=== PATIENT | female | born 1990 | race Caucasian/White ===

== ENCOUNTER 2019-12-25 13:07 | Emergency (ER) | payer OTHER ==
[2019-12-25 13:16] VITALS: RESP 18; TEMP 98.3
[2019-12-25] MEDS ORDERED: IBUPROFEN 600 MG TAB PO STA (13:35)
--- NOTE | 2019-12-25 14:07 | XR ---
EXAMINATION TYPE: XR chest 2V DATE OF EXAM: 12/25/2019 COMPARISON: 11/26/2011 HISTORY: Chest pain TECHNIQUE: FINDINGS: Heart and mediastinum are normal. Lungs are clear. Diaphragm is normal. Bony thorax appears normal. IMPRESSION: Normal chest. No change.
--- NOTE | 2019-12-25 14:10 | XR ---
EXAMINATION TYPE: XR shoulder complete RT DATE OF EXAM: 12/25/2019 COMPARISON: NONE HISTORY: Pain TECHNIQUE: 3 views FINDINGS: There is no sign of fracture nor dislocation. Joint spaces are normal. There are no patholo gic calcifications. IMPRESSION: Negative right shoulder exam. No fracture.
--- NOTE | 2019-12-25 14:11 | XR ---
EXAMINATION TYPE: XR wrist complete RT DATE OF EXAM: 12/25/2019 COMPARISON: NONE HISTORY: Wrist pain TECHNIQUE: 4 views FINDINGS: There is no sign of fracture nor dislocation. Carpal bones are intact. Scaphoid appears nor mal. IMPRESSION: Normal right wrist exam.
--- NOTE | 2019-12-25 14:13 | XR ---
EXAMINATION TYPE: XR hand complete RT DATE OF EXAM: 12/25/2019 COMPARISON: NONE HISTORY: Pain TECHNIQUE: 3 views FINDINGS: Metacarpals are intact. I see no fracture nor dislocation. Joint spaces are normal. IMPRESSION: Negative right hand exam.
--- NOTE | 2019-12-25 14:45 | XR ---
EXAMINATION TYPE: XR scapula RT DATE OF EXAM: 12/25/2019 COMPARISON: NONE HISTORY: Fall. Pain. TECHNIQUE: 3 views FINDINGS: There is a 2 cm nondisplaced chip fracture of the inferior margin of the scapula. The gleno humeral joint is intact. AC joint is intact. IMPRESSION: Nondisplaced scapular fracture of the inferior margin.
[2019-12-25] MEDS ORDERED: ACET/COD 300 MG/30 MG STARTER PACK 6 TAB BTL PO STA (15:17)
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
[2019-12-25 15:24] VITALS: BP 130/70; PULSE 70
== END 2019-12-25 15:28 | disposition home or self-care (01) ==
LOC: EC 13:07
DX: S42.191A Fracture of other part of scapula, right shoulder, initial encounter for closed fracture (principal); M25.531 Pain in right wrist; F17.200 Nicotine dependence, unspecified, uncomplicated; V89.2XXA Person injured in unspecified motor-vehicle accident, traffic, initial encounter; Y92.009 Unspecified place in unspecified non-institutional (private) residence as the place of occurrence of the external cause
CPT/HCPCS: 71046; 99284

== ENCOUNTER → 2020-02-07 | Outpatient (CLI) | payer SELFPAY ==
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
== END | disposition home or self-care (01) ==
LOC: RADCTMAIN 11:21
PROVIDERS: ATTEND Orthopaedic Surgery
DX: S62.143A Displaced fracture of body of hamate [unciform] bone, unspecified wrist, initial encounter for closed fracture (principal)

== ENCOUNTER 2021-04-23 11:40 | Outpatient (CLI) | payer SELFPAY ==
[2021-04-23 12:58] LABS: Appearance,Urine Turbid (Clear); Bacteria,Urine Moderate /hpf; Bilirubin,Urine Negative (Negative); Blood,Urine Negative (Negative); Calcium Oxalate Crystals,Urine Few /hpf; Color,Urine Yellow; Glucose,Urine (UA) Negative (Negative); Ketones,Urine Trace (Negative); Leukocyte Esterase,Urine Large (Negative); Mucus,Urine Many /hpf; Nitrite,Urine Negative (Negative); PH, Urine 6.5 (5.0-8.0); Protein,Urine 1+ (Negative); RBC,Urine 2 /hpf (0-5); Specific Gravity,Urine 1.029 (1.001-1.035); Squamous Epithelial Cell,Urine 95 /hpf (0-4)
[2021-04-23 13:50] VITALS: BP 119/67; PULSE 118; RESP 16; TEMP 97.5
--- NOTE | 2021-04-23 18:08 | P.MSEPDOC ---
Presenting Problems - Arrival Data Date of Arrival on Unit: 04/23/21 Time of Arrival on Unit: 11:40 Mode of Transport: Ambulatory - Complaint OB-Reason for Admission/Chief Complaint: NST, Other Comment: sore throat Medical History - Information : 3 Para: 1 Term: 1 : 0 Abortions: Spontaneous or Elective: 1 Number of Living Children: 1 - Gestational Age Gestational Age by OMARI (wks/days): 32 Weeks and 4 Days - History Complications: Smoker Review of Systems - Review of Systems Constitutional: No problems Breast: No problems ENT: Sore throat, Cough Cardiovascular: No problems Respiratory: No problems Gastrointestinal: No problems Genitourinary: No problems Musculoskeletal: No problems Neurological: No problems Skin: No problems Vital Signs - Temperature Temperature: 97.5 F Temperature Source: Temporal Artery Scan - Pulse Right Sitting Pulse Rate: 118 Pulse Assessment Method: Automatic Cuff - Respirations Respiratory Rate: 16 Oxygen Delivery Method: Room Air O2 Sat by Pulse Oximetry: 98 - Blood Pressure Right Arm Blood Pressure: 119/67 Blood Pressure Mean: 84 Blood Pressure Source: Automatic Cuff Medical Screen Scoring - Assessment - Baby A Baseline FHR: 150 Heart Rate - NICHD Category: Category I (Normal) NST: Reactive Physician Notification - Physician Notified Physician Notified Date: 04/23/21 Physician Notified Time: 13:16 Physician: Freida Barragan Order Received: Yes (d/c home) Maternal Triage Index - Scheduled/Requesting Priority 5 Scheduled/Requesting Priority 5: Yes Criteria Met for Priority 5: written order for NST, Urinalysis, covid, flu and strep swab Disposition - Disposition OB Disposition: Discharge to home Discharge Date: 04/23/21 Discharge Time: 13:25 I agree with the RN Medical Screening Exam: Yes Case reviewed; plan agreed upon as documented in EMR&OBIX.: Yes Diagnosis: COVID-19
== END 2021-04-23 13:25 | disposition home or self-care (01) ==
LOC: FBPOP 11:40
PROVIDERS: ATTEND Obstetrics & Gynecology
DX: O98.513 Other viral diseases complicating pregnancy, third trimester (principal); O99.333 Smoking (tobacco) complicating pregnancy, third trimester; U07.1 COVID-19; F17.200 Nicotine dependence, unspecified, uncomplicated; Z3A.32 32 weeks gestation of pregnancy
CPT/HCPCS: 59025; 81001; 87081; 87430; 87502; 87635

== ENCOUNTER 2021-06-07 06:00 | Inpatient (IN) | payer OTHER ==
--- NOTE | 2021-06-06 13:16 | P.HPOB ---
History of Present Illness H&P Date: 06/06/21 Chief Complaint: Induction of labor This is a 30 y.o. female, 3, para 1, with an estimated date of confinement of 06/14/2021, estimated gestational age of 39-0/7 weeks, who presents for induction of labor. She complains of frequent contractions and pressure. was complicated by COVID-19 in April. labs: CF screen-neg Syphilis screen-neg Rubella-immune Random glucose-69 Hepatitis B surface antigen-neg Hemoglobin-12.6 Blood type-A+ Antibody screen-neg 1 hr. GTT-79 GBS-neg Pap-HGSIL OB Hx: . 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 Review of Systems Constitutional: Denies chills, Denies fever Eyes: denies blurred vision, denies pain Ears, nose, mouth and throat: Denies headache, Denies sore throat Cardiovascular: Denies chest pain, Denies shortness of breath Respiratory: Denies cough Gastrointestinal: Reports abdominal pain (contractions), Denies diarrhea, Denies nausea, Denies vomiting Genitourinary: Reports pelvic pain, Reports Musculoskeletal: Reports low back pain Integumentary: Denies pruritus, Denies rash Neurological: Denies numbness, Denies weakness Psychiatric: Denies anxiety, Denies depression Past Medical History Past Medical History: No Reported History History of Any Multi-Drug Resistant Organisms: None Reported Past Surgical History: No Surgical Hx Reported Past Psychological History: No Psychological Hx Reported Smoking Status: Vaper Past Alcohol Use History: None Reported Past Drug Use History: None Reported - Past Family History Father Family Medical History: Hypertension Mother Family Medical History: Thyroid Disorder Medications and Allergies Home Medications Medication Instructions Recorded Confirmed Type Ondansetron [Zofran ODT] 4 mg PO Q8HR PRN #15 tab 12/25/19 04/23/21 Rx diphenhydrAMINE HCL [Benadryl] 1 tab PO DIRECTED 04/23/21 04/23/21 History Allergies Allergy/AdvReac Type Severity Reaction Status Date / Time No Known Allergies Allergy Verified 04/23/21 12:05 Exam Osteopathic Statement: *. No significant issues noted on an osteopathic structural exam other than those noted in the History and Physical/Consult.
[2021-06-07] MEDS ORDERED: CARBOPROST TROMETHAMINE 250 MCG/ML 1 ML AMP IM PRN (06:29)
[2021-06-07] MEDS ORDERED: OXYTOCIN 30 UNITS/500 ML NS 30 UNIT in SALINE 1 500ML.BAG IV SCH ×2 (06:29→13:28)
[2021-06-07] MEDS ORDERED: LIDOCAINE 1% (PF) 10 MG/ML (30 ML SDV) SQ PRN (06:29)
[2021-06-07] MEDS ORDERED: OXYTOCIN 10 UNIT/ML 1 ML VIAL IM PRN (06:29)
[2021-06-07] MEDS ORDERED: METHYLERGONOVINE 0.2 MG/ML 1 ML AMP IM PRN (06:29)
[2021-06-07] MEDS ORDERED: LACTATED RINGERS 1,000 ML IV SCH (06:29)
[2021-06-07] MEDS ORDERED: TERBUTALINE 1 MG/ML VIAL SQ PRN (06:29)
[2021-06-07] MEDS ORDERED: LIDOCAINE 1% (10MG/ML) FOR IV START INTRADERMA PRN (06:29)
[2021-06-07 07:20] LABS: Basophils % (A) 1 %; Eosinophils # (A) 0.1 k/uL (0-0.7); Eosinophils % (A) 1 %; HCT 31.4 % (34.0-46.0); HGB 10.7 gm/dL (11.4-16.0); Lymphocytes # (A) 1.6 k/uL (1.0-4.8); Lymphocytes % (A) 23 %; MCH 31.8 pg (25.0-35.0); MCHC 34.2 g/dL (31.0-37.0); MCV 92.9 fL (80.0-100.0); Mean Platelet Volume 7.7; Monocytes # (A) 0.2 k/uL (0-1.0); Monocytes % (A) 3 %; Neutrophils % (A) 72 %; Platelet Count 294 k/uL (150-450); RBC 3.38 m/uL (3.80-5.40); RDW 13.2 % (11.5-15.5)
[2021-06-07] MEDS ORDERED: ROPIVACAINE 100 MG, fentaNYL (PF). 200 MCG in SODIUM CHLORIDE 0.9% 76 ML EPIDURAL ONE (11:07)
--- NOTE | 2021-06-07 13:23 | P.PROBDLV ---
Vaginal Delivery Note - . Vaginal Delivery Note: The patient progressed to complete dilation after oxytocin induction of labor and artificial rupture of membranes with clear fluid noted. She did receive epidural anesthesia. Once reaching complete, she began pushing. She pushed for just a couple pushes and 's head came to a crown. With one further push, 's head delivered across the perineum followed by the anterior shoulder. Nose and mouth were bulb suctioned and nuchal cord times one was reduced around the infant's head. With one further push, the remainder the easily delivered and was placed on mother's abdomen. Cord was allowed to finish pulsating and then cord was clamped and cut. Infant was taken to warmer for evaluation. A viable female was noted with scores of 9 at 1 minute and 9 at 5 minutes and weight was 7 lbs. 5 oz. After waiting approximately 15 minutes, the placenta was not showing any signs of detaching. A gloved hand was placed within the endometrial cavity and the placenta was then manually removed. There was an accessory lobe to the placenta that appeared completely intact after removal. After removal of the placenta gloved hand was then placed back into the endometrial cavity and no further tissue or placental tissue was noted. Uterus contracted well after oxytocin was given and uterine massage was carried out. Inspection of the perineum revealed no perineal lacerations. She did have a mild periurethral abrasion. Estimated blood loss is approximately 200 mL's. Both mother and are in stable condition.
[2021-06-07] MEDS ORDERED: LANOLIN CREAM 5 GM TUBE TOPICAL PRN (13:28)
[2021-06-07] MEDS ORDERED: SIMETHICONE 80 MG CHEWABLE PO PRN (13:28)
[2021-06-07] MEDS ORDERED: diphenhydrAMINE 25 MG CAP PO PRN (13:28)
[2021-06-07] MEDS ORDERED: diphenhydrAMINE 50 MG CAP PO PRN (13:28)
[2021-06-07] MEDS ORDERED: HYDROCORTISONE 2.5% RECTAL CREAM 30 GM TUBE RECTAL PRN (13:28)
[2021-06-07] MEDS ORDERED: BENZOCAINE/MENTHOL SPRAY 1 GM/SPRAY AEROSOL TOPICAL PRN (13:28)
[2021-06-07] MEDS ORDERED: diphenhydrAMINE 50 MG/ML 1 ML VIAL IVP PRN ×2 (13:28)
[2021-06-07] MEDS ORDERED: ZOLPIDEM 5 MG TAB PO PRN (13:28)
[2021-06-07] MEDS: IBUPROFEN 600 MG TAB PO PRN (15:36)
[2021-06-07] MEDS: ACETAMINOPHEN TAB 325 MG TAB PO PRN (20:19)
[2021-06-07] MEDS: SENNOSIDES-DOCUSATE SODIUM 1 EACH TAB PO SCH (20:19)
[2021-06-08] MEDS: IBUPROFEN 600 MG TAB PO PRN ×2 (01:29→10:16)
[2021-06-08] MEDS: ACETAMINOPHEN TAB 325 MG TAB PO PRN (06:11)
[2021-06-08 07:45] LABS: Basophils % (A) 0 %; Eosinophils # (A) 0.1 k/uL (0-0.7); Eosinophils % (A) 1 %; HCT 29.3 % (34.0-46.0); HGB 9.8 gm/dL (11.4-16.0); Lymphocytes # (A) 1.5 k/uL (1.0-4.8); Lymphocytes % (A) 17 %; MCHC 33.3 g/dL (31.0-37.0); MCV 96.2 fL (80.0-100.0); Mean Platelet Volume 7.9; Monocytes # (A) 0.3 k/uL (0-1.0); Monocytes % (A) 3 %; Neutrophils # (A) 7.1 k/uL (1.3-7.7); Neutrophils % (A) 78 %; Platelet Count 205 k/uL (150-450); RBC 3.05 m/uL (3.80-5.40); RDW 13.3 % (11.5-15.5); WBC 9.1 k/uL (3.8-10.6)
[2021-06-08 08:39] VITALS: RESP 15
[2021-06-08] MEDS: SENNOSIDES-DOCUSATE SODIUM 1 EACH TAB PO SCH (08:39)
--- NOTE | 2021-06-08 12:51 | P.DS ---
Providers Date of admission: 06/07/21 06:14 Expected date of discharge: 06/08/21 Attending physician: Freida Barragan Primary care physician: Stated None Hospital Course: Oxytocin induction of labor and delivered vaginally a viable female with scores of 9 at 1 minute and 9 at 5 minutes and infant weight of 7 lbs. 5 oz. Her course has been uncomplicated. She is breast-feeding. Lochia is decreasing. Her pain is well-controlled. Vital signs are stable. Abdomen is soft with fundus firm and nontender. Extremities show negative Homans. Impression is status post vaginal delivery day #1. Plan is to discharge home today. Routine instructions are given. She will be given a prescription for ibuprofen and a breast pump. She is advised follow- up in the office in 6 weeks for a check. She is advised to call the office if she has any further questions or concerns prior to her appointment times. Procedures: Oxytocin induction of labor Spontaneous vaginal delivery of a viable female infant on 06/07/2021. Patient Condition at Discharge: Stable Plan - Discharge Summary New Discharge Prescriptions: New Ibuprofen [Motrin] 600 mg PO Q6HR PRN #60 tab PRN Reason: Mild Pain (Scale 1 To 3) Discharge Medication List Ibuprofen [Motrin] 600 mg PO Q6HR PRN #60 tab 06/08/21 [Rx] Follow up Appointment(s)/Referral(s): Freida Barragan DO [Doctor of Osteopathic Medicine] - 07/16/21 11:30 am Activity/Diet/Wound Care/Special Instructions: Instructions 1. Do not begin any exercise program for 3 weeks. 2. Do not resume sexual relations for 3 weeks or longer if uncomfortable. 3. You may take tub baths or showers at any time. 4. You may use tampons if desired after 3 weeks. 5. Keep the area of episiotomy (stitches) clean and dry. 6. If you are not nursing, wear a good fitting, supportive bra during the day and limit fluid intake for at least 1 week to prevent breast engorgement. 7. Call the office, [phone], within the next week to make appointment for your 6 week checkup if it has not already been made. 8. Report any of the following occurrences to the doctor promptly: a. Heavy, excessive bleeding b. Chills, fever c. Burning or frequency of urination d. Pain or redness and breasts if nursing e. Increasing pain or swelling in episiotomy (stitches). In addition to the above instructions, the following additional should be followed: 1. No heavy lifting or straining (exercising) until after 6 week checkup. 2. Keep abdominal incision clean and dry: You may wear a dressing if more comfortable. 3. Make office appointment for 10 days after going home or as instructed by her doctor. Discharge Disposition: HOME SELF-CARE
[2021-06-08 13:11] VITALS: BP 133/66; PULSE 90; TEMP 98.3
== END 2021-06-08 13:40 | disposition home or self-care (01) | DRG 807 ==
LOC: 4FBP 06:14
PROVIDERS: ADMIT Obstetrics & Gynecology; ATTEND Obstetrics & Gynecology
PROC: 10E0XZZ Delivery of Products of Conception, External Approach (ICD-10-PCS; principal; 2021-06-07)
PROC: 10907ZC Drainage of Amniotic Fluid, Therapeutic from Products of Conception, Via Natural or Artificial Opening (ICD-10-PCS; 2021-06-07)
PROC: 3E033VJ Introduction of Other Hormone into Peripheral Vein, Percutaneous Approach (ICD-10-PCS; 2021-06-07)
DX: O69.81X0 Labor and delivery complicated by cord around neck, without compression, not applicable or unspecified (principal); Z37.0 Single live birth; O71.82 Other specified trauma to perineum and vulva; Z3A.39 39 weeks gestation of pregnancy; Z86.16 Personal history of COVID-19
CPT/HCPCS: 85025; 86850; 86900; 86901

== ENCOUNTER → 2021-06-17 | Outpatient (CLI) | payer OTHER ==
--- NOTE | 2021-06-17 15:25 | US ---
EXAMINATION TYPE: US pelvic complete DATE OF EXAM: 06/17/2021 COMPARISON: NONE CLINICAL HISTORY: R10.2 PELVIC PAIN. Pelvic pain. Pt had vaginal delivery on 06/07/2021. . TECHNIQUE: Transabdominal (TA). Transabdominal sonographic images of the pelvis were acquired. Date of LMP: Pt had vaginal delivery 06/07/2021. EXAM MEASUREMENTS: Uterus: 13.8 x 7.9 x 10.0 cm Endometrial Stripe: Not well defined. Right Ovary: 2.6 x 1.7 x 1.4 cm Left Ovary: 3.7 x 2.4 x 1.6 cm 1. Uterus: Anteverted 2. Endometrium: Not well defined. Possible complex fluid seen within the upper endometrium, no vascu larity seen: 1.9 x 2.6 x 1.0 cm. Possible fluid seen in cervix (anechoic area): 2.0 x 0.7 x 0.5 cm. 3. Right Ovary: Appears wnl. 4. Left Ovary: Appears wnl. 5. Bilateral Adnexa: Appear wnl. 6. Posterior cul-de-sac: Appears wnl. IMPRESSION: Endometrium is not well-defined. Finding suggest some abnormal thickening present, consid er follow-up
== END | disposition home or self-care (01) ==
LOC: RADUSWWP 12:47
PROVIDERS: ATTEND Obstetrics & Gynecology
DX: R10.2 Pelvic and perineal pain (principal)
CPT/HCPCS: 76856

== ENCOUNTER 2021-11-25 06:15 | Day surgery (SDC) | payer OTHER ==
--- NOTE | 2021-11-24 09:30 | P.HPOB ---
History of Present Illness H&P Date: 11/24/21 Chief Complaint: High grade squamous intraepithelial lesion of cervix This is a 31 y.o. female, 3, para 2, who presents for colposcopy with loop electrosurgical excision procedure due to persistent high grade squamous intraepithelial lesion of the cervix on pap smear. She was originally diagnosed with HGSIL on pap in 08/2020 and had a colposcopy that showed JULIUS II & III. She was not treated due to . Her last pap smear on 07/31/2021 showed HGSIL with +HR HPV. As she is no longer , she will proceed with the above noted procedure. OB Hx: . History of 2 vaginal deliveries and 1 miscarriage. 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 Social Hx: Single. Works for a [employer]. Review of Systems Constitutional: Denies chills, Denies fever Eyes: denies blurred vision, denies pain Ears, nose, mouth and throat: Denies headache, Denies sore throat Cardiovascular: Denies chest pain, Denies shortness of breath Respiratory: Denies cough Gastrointestinal: Denies abdominal pain, Denies diarrhea, Denies nausea, Denies vomiting Genitourinary: Denies dysuria, Denies hematuria Musculoskeletal: Denies myalgias Integumentary: Denies pruritus, Denies rash Neurological: Denies numbness, Denies weakness Psychiatric: Reports anxiety, Reports depression Past Medical History Past Medical History: No Reported History Additional Past Medical History / Comment(s): abnormal cells noted on cervix. irregular periods History of Any Multi-Drug Resistant Organisms: None Reported Past Surgical History: No Surgical Hx Reported Past Anesthesia/Blood Transfusion Reactions: No Reported Reaction Additional Past Anesthesia/Blood Transfusion Reaction / Comment(s): pt's mother has nausea with anesthesia Past Psychological History: Anxiety, Depression Smoking Status: Current every day smoker, Vaper Past Alcohol Use History: Occasional Past Drug Use History: None Reported - Past Family History Father Family Medical History: Hypertension Additional Family Medical History / Comment(s): Irregular heat rhythm Mother Family Medical History: Hypertension, Rheumatoid Arthritis (RA), Thyroid Disorder Medications and Allergies Home Medications Medication Instructions Recorded Confirmed Type No Known Home Medications 11/21/21 11/25/21 History Allergies Allergy/AdvReac Type Severity Reaction Status Date / Time No Known Allergies Allergy Verified 11/25/21 06:43 Exam Osteopathic Statement: *. No significant issues noted on an osteopathic st ructural exam other than those noted in the History and Physical/Consult. HEENT: within normal limits Heart: regular rate and rhythm Lungs: clear to auscultation bilaterally Abdomen: soft, non-tender Pelvic: uterus small, anteverted, non-tender, no adnexal masses or tenderness Extremities: negative Pardeep's Assessment and Plan (1) HGSIL (high grade squamous intraepithelial lesion) on Pap smear of cervix Current Visit: No Status: Acute Code(s): R87.613 - HIGH GRADE INTREPITH LESION CYTO SMR CRVX (HGSIL) SNOMED Code(s): 27581961401825 (2) Cervical high risk HPV (human papillomavirus) test positive Current Visit: No Status: Acute Code(s): R87.810 - CERVICAL HIGH RISK HPV DNA TEST POSITIVE SNOMED Code(s): 164198540 Plan: Proceed with colposcopy with loop electrocautery excision procedure. I have discussed the risks, benefits, and alternative therapies for the above- mentioned procedure and for both sedation/anesthesia as well as necessary blood products administration, if indicated, as they pertain to this patient. The patient has indicated her understanding and acceptance of the risks and p rocedures discussed.
[~2021-11-25 06:15] MED LIST: Pre Op ABX Message 1 EACH MISC MISCELLANE ONE
[2021-11-25 06:40] VITALS: RESP 16
[2021-11-25] MEDS ORDERED: ONDANSETRON 4 MG/2 ML VIAL IVP ONE (06:40)
[2021-11-25] MEDS ORDERED: MIDAZOLAM 2 MG/2 ML VIAL IV PRN (06:40)
[2021-11-25] MEDS ORDERED: SCOPOLAMINE 1 MG/72 HR PATCH TRANSDERM ONE (06:40)
[2021-11-25] MEDS ORDERED: LACTATED RINGERS 1,000 ML IV SCH (06:40)
[2021-11-25] MEDS ORDERED: DEXAMETHASONE SOD PHOSPHATE 4 MG/ML 1 ML VIAL IV ONE (06:40)
[2021-11-25] MEDS ORDERED: HYDROmorphone 0.5 MG/0.5 ML SYRINGE IVP PRN (07:00)
[2021-11-25] MEDS ORDERED: LIDOCAINE 1% (10MG/ML) FOR IV START INTRADERMA ONE (07:04)
[2021-11-25] MEDS ORDERED: ePHEDrine 50 MG/ML 1 ML VIAL ONE (07:20)
[2021-11-25] MEDS ORDERED: LIDOCAINE 2% INJ 20 MG/ML (2 ML VIAL) ONE (07:20)
[2021-11-25] MEDS ORDERED: PROPOFOL 10 MG/ML 20 ML VIAL IV ONE (07:20)
[2021-11-25] MEDS ORDERED: fentaNYL (PF) 50 MCG/ML 2 ML AMP ONE (07:20)
[2021-11-25] MEDS ORDERED: diphenhydrAMINE 50 MG/ML 1 ML VIAL ONE (07:20)
[2021-11-25] MEDS ORDERED: MIDAZOLAM 2 MG/2 ML VIAL ONE (07:20)
[2021-11-25] MEDS ORDERED: FERRIC SUBSULFATE (MONSELS) JAR TOPICAL ONE ×3 (07:48→07:59)
[2021-11-25] MEDS ORDERED: BUPIVACAINE (PF) 0.5% 30 ML VIAL SQ ONE (07:51)
[2021-11-25] MEDS ORDERED: LIDOCAINE 1%-EPI 1:100,000 20 ML VIAL SUBMUCOSAL ONE (07:51)
[2021-11-25] MEDS ORDERED: ACETIC ACID 15 DROPS/ML DROPS MISCELLANE ONE (07:52)
[2021-11-25] MEDS ORDERED: IODINE/POTASS IOD (LUGOLS) BOTTLE ONE (08:00)
--- NOTE | 2021-11-25 08:05 | P.OP ---
Date of Procedure: 11/25/21 Preoperative Diagnosis: High-grade squamous intraepithelial lesion of the cervix Postoperative Diagnosis: Same Procedure(s) Performed: Colposcopy with loop electrocautery excision procedure Anesthesia: other (LMA general) Surgeon: Freida Barragan Estimated Blood Loss (ml): 10 Pathology: other (Ectocervix with 12:00 marked with a black stitch and 3:00 marked with a white stitch. Separate piece is endocervix.) Condition: stable Disposition: same day Indications for Procedure: This is a 31 y.o. female, 3, para 2, who presents for colposcopy with loop electrosurgical excision procedure due to persistent high grade squamous intraepithelial lesion of the cervix on pap smear. She was originally diagnosed with HGSIL on pap in 08/2020 and had a colposcopy that showed JULIUS II & III. She was not treated due to . Her last pap smear on 07/31/2021 showed HGSIL with +HR HPV. As she is no longer , she will proceed with the above noted procedure. Operative Findings: The transition zone is seen entirely. Acetowhite and Lugol white areas are noted around the transition zone. There is some mosaicism noted at the 3 and 9:00 Description of Procedure: The patient is taken to the operating room where she is placed in the dorsal lithotomy position. She is prepped and draped in the normal sterile fashion. Her bladder is drained with a catheter. A bivalve coated speculum is placed in the patient's vagina. Next colposcopy is performed using a blue light. The cervix is swabbed with 5% acetic acid solution. Acetowhite areas noted around the transition zone was some coarse mosaicism noted at 3 and 9:00 positions. Next Lugol solution is applied in the same area is Lugol white. Next the cervix was circumferentially injected with a 50-50 mixture of 4% Marcaine and 1% lidocaine with epinephrine. Approximately 9 mL are used injecting with the spinal needle circumferentially around the cervix. Next the large loop was used to swipe from left to right removing the entire transition zone. There was a small area of transition zone noted on the 3:00 border. This was separately removed with the same large loop next a small loop was used to remove the endocervix. Ball-tipped cautery is used to cauterize the bed left behind. Hemostasis as assured with Monsel's solution. Good hemostasis is noted. All sponges and instruments are removed from the vagina. Next the ectocervix is marked at the 12 o'clock position with a black suture and the 3:00 pieces marked with a white suture. The separate piece is noted to be endocervix. Patient is taken to recovery room in stable condition.
[2021-11-25 08:16] VITALS: TEMP 96.8
[2021-11-25 09:29] VITALS: BP 128/77; PULSE 72
== END 2021-11-25 09:34 | disposition home or self-care (01) ==
LOC: OR 06:15
PROVIDERS: ATTEND Obstetrics & Gynecology
DX: R87.613 High grade squamous intraepithelial lesion on cytologic smear of cervix (HGSIL) (principal); F17.210 Nicotine dependence, cigarettes, uncomplicated
CPT/HCPCS: 81025; 88307; 57460; J2250; J1200; J1100; J2405; J3010; J2704; J2001

== ENCOUNTER → 2022-07-02 | Outpatient (CLI) | payer OTHER ==
[2022-07-03 16:36] LABS: Estrogens Total 184 pg/mL
== END | disposition home or self-care (01) ==
LOC: LABWHC1 14:49
DX: R63.5 Abnormal weight gain (principal)
CPT/HCPCS: 36415; 82040; 82672; 84144; 84270; 84403

== ENCOUNTER → 2022-07-23 | Outpatient (CLI) | payer OTHER | END | disposition home or self-care (01) | LOC: LABWHC1 11:08 | PROVIDERS: ATTEND Nurse Practitioner Family | DX: R63.5 Abnormal weight gain (principal) | CPT/HCPCS: 36415; 82040; 84270; 84403 ==

== ENCOUNTER → 2023-02-11 | Outpatient (CLI) | payer OTHER ==
--- NOTE | 2023-02-11 15:56 | US ---
EXAMINATION TYPE: US pelvic complete DATE OF EXAM: 02/11/2023 COMPARISON: 07/02 PELVIC US CLINICAL INDICATION: Female, 32 years old with history of N94.6 DYSMENORRHEA, UNSPECIFIED N92.1 EXCES SIVE AN; DUB, PROVIDER THOUGHT THERE WERE STEWART CYSTS ON PELVIC EXAM TECHNIQUE: Transabdominal (TA). Transabdominal sonographic images of the pelvis were acquired. Date of LMP: 1 WK AGO EXAM MEASUREMENTS: Uterus: 9.4 X 4.4 X 7.0 cm Endometrial Stripe: 0.4 cm Right Ovary: 2.8 X 1.8 X 3.1 cm Left Ovary: 3.4 X 2.5 X 2.1 cm 1. Uterus: Anteverted WNL 2. Endometrium: WNL 3. Right Ovary: WNL 4. Left Ovary: WNL 5. Bilateral Adnexa: WNL 6. Posterior cul-de-sac: NO FREE FLUID SEEN Unremarkable anteverted uterus. Endometrium is within normal limits. Both ovaries appear unremarkable . No free fluid. IMPRESSION: 1. No acute pelvic process. 2. Endometrium is within normal limits.
== END | disposition home or self-care (01) ==
LOC: RADUSWWP 15:28
PROVIDERS: ATTEND Obstetrics & Gynecology
DX: N92.1 Excessive and frequent menstruation with irregular cycle (principal); N94.6 Dysmenorrhea, unspecified
CPT/HCPCS: 76856

== ENCOUNTER → 2023-05-12 | Outpatient (CLI) | payer OTHER ==
[2023-05-12 17:46] LABS: BUN/Creat Ratio 22.14 Ratio (12.00-20.00); Blood Urea Nitrogen 15.5 mg/dL (9.0-27.0); Calcium 9.4 mg/dL (8.7-10.3); Carbon Dioxide 27.9 mmol/L (21.6-31.8); Chloride 106 mmol/L (96-109); Glucose 67 mg/dL (70-110); Potassium 4.3 mmol/L (3.5-5.5); Sodium 143 mmol/L (135-145)
[2023-05-12 19:43] LABS: Basophils # (A) 0.05 X 10*3/uL (0.00-0.10); Basophils % (A) 0.7 %; Eosinophils # (A) 0.04 X 10*3/uL (0.04-0.35); Eosinophils % (A) 0.6 %; HCT 38.8 % (37.2-46.3); HGB 12.4 g/dL (12.0-15.0); Lymphocytes # (A) 2.15 X 10*3/uL (0.90-5.00); Lymphocytes % (A) 30.8 %; MCH 30.4 pg (27.0-32.0); MCV 95.1 FL (80.0-97.0); Mean Platelet Volume 9.6 FL (9.5-12.2); Monocytes % (A) 5.7 %; NRBC Per 100 WBC 0 X 10*3/uL (0.00-0.01); Neutrophils # (A) 4.33 X 10*3/uL (1.80-7.70); Neutrophils % (A) 61.9 %; Platelet Count 346 X 10*3/uL (140-440); RBC 4.08 X 10*6/uL (4.10-5.20); RDW 12.8 % (11.5-14.5); WBC 6.99 X 10*3/uL (4.50-10.00)
== END | disposition home or self-care (01) ==
LOC: LABPAT 11:36
PROVIDERS: ATTEND Obstetrics & Gynecology
DX: Z01.812 Encounter for preprocedural laboratory examination (principal)
CPT/HCPCS: 36415; 80048; 85025; 86850; 86900; 86901

== ENCOUNTER 2023-05-21 05:44 | Day surgery (SDC) | payer OTHER ==
[2023-05-14 08:57] VITALS: BMI 28.4
--- NOTE | 2023-05-20 19:09 | P.HPOB ---
History of Present Illness H&P Date: 05/20/23 Chief Complaint: Menorrhagia with regular cycle, dysmenorrhea This is a 32-year-old female 3 para 2 who presents for total laparoscopic hysterectomy with bilateral salpingectomy with da Renee and diagnostic cystoscopy, possible total abdominal hysterectomy with bilateral salpingo-oophorectomy, due to menorrhagia with regular cycle and dysmenorrhea. Patient states she has been getting intermenstrual spotting for about a week prior to periods and painful periods. She has had painful menses her entire life. Currently she is missing 1 to 2 days/month of work due to her pain with her cycle. Her pelvic ultrasound showed a uterus measuring 9.4 x 4.4 x 7 cm with an endometrial thickness of 0.4 cm. Normal ovaries were noted. In addition she does have a history of JULIUS-3 diagnosed on colposcopy and she did have a LEEP procedure for this. Patient is requesting definitive surgical treatment and declines endometrial ablation. Obstetrical history: G3, P2. History of 1 miscarriage and 2 vaginal deliveries. 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 She was diagnosed with JULIUS-3 at that time. She also has a history of genital warts that have resolved. Social history: She is single. 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 Review of Systems Constitutional: Reports fatigue (Around menses), Reports night sweats, Denies chills, Denies fever Eyes: denies blurred vision, denies pain Ears, nose, mouth and throat: Denies headache, Denies sore throat Cardiovascular: Denies chest pain, Denies shortness of breath Respiratory: Denies cough Gastrointestinal: Denies abdominal pain, Denies diarrhea, Denies nausea, Denies vomiting Genitourinary: Reports dysmenorrhea, Reports menorrhagia, Reports pelvic pain Menstruation: Reports menses variable, Reports period heavy Musculoskeletal: Reports low back pain (With menses) Integumentary: Denies pruritus, Denies rash Neurological: Denies numbness, Denies weakness Psychiatric: Reports anxiety, Denies depression Endocrine: Reports fatigue, Denies weight change Past Medical History Additional Past Medical History / Comment(s): abnormal cells noted on cervix. irregular periods History of Any Multi-Drug Resistant Organisms: None Reported Additional Past Surgical History / Comment(s): LEEP procedure. Past Anesthesia/Blood Transfusion Reactions: Motion Sickness Additional Past Anesthesia/Blood Transfusion Reaction / Comment(s): Mother has nausea with anesthesia. Past Psychological History: Anxiety Smoking Status: Current every day smoker, Vaper Past Alcohol Use History: Occasional Additional Past Alcohol Use History / Comment(s): Smoked for 14yrs, now smokes eletronic cigarettes. Past Drug Use History: None Reported Additional Drug Use History / Comment(s): Hx Marijuana gummy use, none in a month. Aware no use 24 hrs prior to procedure. - Past Family History Father Family Medical History: Hypertension Additional Family Medical History / Comment(s): Irregular heat rhythm. Mother Family Medical History: Hypertension, Rheumatoid Arthritis (RA), Thyroid Disorder Medications and Allergies Home Medications Medication Instructions Recorded Confirmed Type No Known Home Medications 11/21/21 11/25/21 History Allergies Allergy/AdvReac Type Severity Reaction Status Date / Time No Known Allergies Allergy Verified 05/14/23 08:33 Exam Osteopathic Statement: *. No significant issues noted on an osteopathic structural exam other than those noted in the History and Physical/Consult. HEENT: Within normal limits Heart: Regular rate and rhythm Lungs: Clear to auscultation bilaterally Abdomen: Soft, nontender Pelvic exam: Uterus is mid position, nontender, bilateral adnexa are mildly tend er with slight enlargement of the left side on exam. Extremities: Negative Homans Assessment and Plan (1) Menorrhagia with regular cycle Status: Acute Code(s): N92.0 - EXCESSIVE AND FREQUENT MENSTRUATION WITH REGULAR CYCLE SNOMED Code(s): 051339545 (2) Dysmenorrhea Status: Acute Code(s): N94.6 - DYSMENORRHEA, UNSPECIFIED SNOMED Code(s): 059410875 (3) JULIUS III (cervical intraepithelial neoplasia grade III) with severe dysplasia Status: Resolved Code(s): D06.9 - CARCINOMA IN SITU OF CERVIX, UNSPECIFIED SNOMED Code(s): 176293857 Plan: Admission for total laparoscopic hysterectomy with bilateral salpingectomy with da Renee and diagnostic cystoscopy, possible total abdominal hysterectomy with bilateral salpingo-oophorectomy. I have discussed the risks, benefits, and alternative therapies for the above- mentioned procedure and for both sedation/anesthesia as well as necessary blood products administration, if indicated, as they pertain to this patient. The patient has indicated her understanding and acceptance of the risks and procedures discussed.
[2023-05-21] MEDS ORDERED: LIDOCAINE 1% (10MG/ML) FOR IV START INTRADERMA PRN (06:10)
[2023-05-21] MEDS: LACTATED RINGERS 1,000 ML IV SCH (06:58)
[2023-05-21] MEDS ORDERED: HYDROmorphone 0.5 MG/0.5 ML SYRINGE IVP PRN (07:00)
[2023-05-21] MEDS: DEXAMETHASONE SOD PHOSPHATE 4 MG/ML 1 ML VIAL IV ONE (07:01)
[2023-05-21] MEDS: ONDANSETRON 4 MG/2 ML VIAL IVP ONE (07:02)
[2023-05-21] MEDS: MIDAZOLAM 2 MG/2 ML VIAL IV PRN (07:02)
[2023-05-21] MEDS ORDERED: HYDROmorphone (PF) 1 MG/ML ONE (07:25)
[2023-05-21] MEDS ORDERED: MIDAZOLAM 2 MG/2 ML VIAL ONE (07:25)
[2023-05-21] MEDS ORDERED: GLYCOPYRROLATE 0.2 MG/ML 2 ML VIAL ONE (07:25)
[2023-05-21] MEDS ORDERED: KETAMINE HCL IN 0.9 % NACL 50 MG/5 ML SYRINGE ONE (07:25)
[2023-05-21] MEDS ORDERED: LIDOCAINE 1% INJ 10MG/ML (20 ML MDV) ONE (07:25)
[2023-05-21] MEDS ORDERED: PROPOFOL 10 MG/ML 20 ML VIAL IV ONE (07:25)
[2023-05-21] MEDS ORDERED: ROCURONIUM 10 MG/ML (5 ML VIAL) IV ONE (07:25)
[2023-05-21] MEDS ORDERED: fentaNYL (PF) 50 MCG/ML 2 ML AMP ONE (07:25)
[2023-05-21] MEDS ORDERED: KETOROLAC 15 MG/ML 1 ML VIAL ONE (07:25)
[2023-05-21] MEDS ORDERED: NEOSTIGMINE 1 MG/ML 10 ML VIAL ONE (07:25)
[2023-05-21] MEDS ORDERED: SUCCINYLCHOLINE CHLORIDE 200 MG/10 ML VIAL IV ONE (07:25)
[2023-05-21] MEDS: BUPIVACAINE (PF) 0.25% 30 ML VIAL SQ ONE ×2 (08:00→08:55)
[2023-05-21] MEDS ORDERED: METOCLOPRAMIDE 5 MG/ML 2 ML VIAL IVP PRN (08:51)
[2023-05-21] MEDS ORDERED: ZOLPIDEM 5 MG TAB PO PRN (08:51)
[2023-05-21] MEDS ORDERED: ONDANSETRON 4 MG/2 ML VIAL IVP PRN (08:51)
--- NOTE | 2023-05-21 09:15 | P.OP ---
Date of Procedure: 05/21/23 Preoperative Diagnosis: Menorrhagia with regular cycle Dysmenorrhea History of JULIUS-3 Postoperative Diagnosis: Same Procedure(s) Performed: Total laparoscopic hysterectomy with bilateral salpingectomy with da Renee Diagnostic cystoscopy Anesthesia: TOVA Surgeon: Freida Barragan Installer Inspector Final #1: [place] Estimated Blood Loss (ml): 50 Pathology: other (Uterus with cervix, bilateral fallopian tubes) Condition: stable Disposition: floor Indications for Procedure: This is a 32-year-old female 3 para 2 who presents for total laparoscopic hysterectomy with bilateral salpingectomy with da Renee and diagnostic cystoscopy, possible total abdominal hysterectomy with bilateral salpingo-oophorectomy, due to menorrhagia with regular cycle and dysmenorrhea. Patient states she has been getting intermenstrual spotting for about a week prior to periods and painful periods. She has had painful menses her entire life. Currently she is missing 1 to 2 days/month of work due to her pain with her cycle. Her pelvic ultrasound showed a uterus measuring 9.4 x 4.4 x 7 cm with an endometrial thickness of 0.4 cm. Normal ovaries were noted. In addition she does have a history of JULIUS-3 diagnosed on colposcopy and she did have a LEEP procedure for this. Patient is requesting definitive surgical treatment and declines endometrial ablation. Operative Findings: Normal uterus tubes and ovaries are noted. No endometriosis or adhesions were visualized. Description of Procedure: The patient was taken to the operating room where she is placed in the dorsal lithotomy position on a pink pad. Her arms are tucked at her sides and cushioned. When she is correctly position, anesthesia was given. Tilt test was performed. She is prepped and draped in the normal sterile fashion. Next a weighted speculum was placed in the patient's vagina. A right angle retractor is used to visualize the cervix. The anterior lip of the cervix is grasped with a single-tooth tenaculum. Cervix is noted to be very friable. Uterus is sounded to 9.5 cm. Cervix is gently dilated with Leon dilators. Next the cervix is measured at 4 cm. 0 Vicryl stitches are placed at the 3 and 9:00 positions on the cervix and held. Next the HUMI manipulator is placed within the cervix, the balloon is inflated, and then the 0 Vicryl sutures are brought through the HUMI and then the cervical cup is pressed against the cervix until the click is heard. Next the Albarran catheter is inserted into the bladder. Gloves are changed and attention is turned to the abdomen. The uterus is anteverted and then marked on the abdomen. An incision is made above the umbilicus approximately 8 cm above the top of the uterus and then a 5 mm disposable bladeless trocar is inserted under direct visualization with low flow. Once inside high flow is turned on and intra-abdominal contents were inspected. Another incision is made on the right side approximately 8 cm lateral to the umbilicus in the midline and a 8 mm da Renee port is placed under direct visualization. The same procedure is carried out on the left side. Next an automobile mechanic assistant port is placed approximately 6 cm superior to the left da Renee port and lateral to the camera port using a 12 mm trocar under direct visualization. Next the 5 mm camera sleeve is replaced with an 8 mm da Renee port. Next the da Renee robot is docked to the patient from her left side. The ports are attached to the arms. Smoke evacuator is also attached. The camera is inserted and then a monopolar scissors is placed through the right port and a vessel sealer was placed through the left port under direct visualization. Energy is attached to both ports. At this time I broke scrub to go to the robot console. The end of the left fallopian tube is grasped by the automobile mechanic assistant and the vessel sealer is used to cauterize and cut the mesosalpinx. The fallopian tube is then removed through the automobile mechanic assistant port. Next the round ligament on the left is grasped with the vessel sealer and cauterized and cut. The broad ligament was then opened up posteriorly with monopolar cautery. Uterine arteries are then grasped with the vessel sealer, cauterized, and cut. Monopolar scissors were then used to carefully dissect the bladder reflection and the bladder flap is created. Next attention is turned to the right side of the pelvis. The end of the right fallopian tube is grasped and the vessel sealer is used to grasp the right mesosalpinx, cauterize, and then cut. The fallopian tube is then amputated at the uterus with cautery and cutting and then the tube is removed from the field. The round ligament was also grasped with the vessel sealer, cauterized and then cut. The posterior leaf of the broad ligament is then opened up to the uterosacral area. Uterine arteries are grasped with vessel sealer and then cauterized and cut. Next the uterus is retroverted and the balloon is inflated. Monopolar scissors are used to cut through the vaginal cuff along the HUMI cuff anteriorly. This is carried around to the right side again using monopolar and bipolar energy. The uterus is anteverted and then the posterior cuff is cut along the HUMI cuff using monopolar scissors. The rem ainder of the left side of the cuff is removed with monopolar and bipolar energy. Once the uterus is freed it is removed through the vagina. Monopolar and bipolar energy are used to cauterize any small bleeders left behind. Next the arms are switched out to the right arm with Adriano suture cut and the left arm with a Fede grasper. An O-Stratafix suture is then used to suture from the right side of the cuff across to the left side in a running fashion after securing the suture with the small loop on the end. Once the left side of the cuff was reached, a couple more sutures were placed going towards the right side to secure the suture. Suture was then cut and removed from the field. Irrigation was carried out. Good hemostasis was noted. Both ovaries still appeared normal and one picture is taken. Next the instruments are removed from the arms. I regowned and cystoscopy was then performed. Both ureteral orifices are visualized with flow. Cystoscopy was then completed and Albarran catheter was replaced. Clear urine was noted. The automobile mechanic assistant sutured the incisions with 4-0 Vicryl suture in a subcuticular fashion and then the incision sites were injected with quarter percent Marcaine. Approximately 9 mL were used. All sponge and needle counts are correct. Patient is taken to recovery room in stable condition.
[2023-05-21] MEDS: droPERidol 5 MG/2 ML VIAL IVP ONE (09:48)
[2023-05-21] MEDS: ACETAMINOPHEN IV (For NPO) 1,000 MG/100 ML VIAL IVPB ONE ×2 (10:50)
[2023-05-21 16:36] VITALS: RESP 16
[2023-05-21] MEDS: KETOROLAC 15 MG/ML 1 ML VIAL IVP PRN (16:57)
[2023-05-21] MEDS: ACETAMINOPHEN IV (For NPO) 1,000 MG in EMPTY BAG 1 BAG IVPB ONE (19:22)
[2023-05-21] MEDS: SENNOSIDES-DOCUSATE SODIUM 1 EACH TAB PO SCH (19:39)
[2023-05-21] MEDS: SIMETHICONE 80 MG CHEWABLE PO PRN (22:17)
[2023-05-21] MEDS: diphenhydrAMINE 50 MG/ML 1 ML VIAL IVP PRN (22:21)
[2023-05-22] MEDS: ACETAMINOPHEN TAB 325 MG TAB PO PRN (02:35)
[2023-05-22] MEDS: IBUPROFEN 600 MG TAB PO PRN (05:05)
[2023-05-22 08:45] LABS: Basophils % (A) 0 %; Eosinophils # (A) 0.1 k/uL (0-0.7); Eosinophils % (A) 1 %; HCT 34.2 % (34.0-46.0); HGB 11.4 gm/dL (11.4-16.0); Lymphocytes # (A) 2.5 k/uL (1.0-4.8); Lymphocytes % (A) 23 %; MCH 31.9 pg (25.0-35.0); MCHC 33.3 g/dL (31.0-37.0); MCV 95.7 fL (80.0-100.0); Mean Platelet Volume 7.8; Monocytes # (A) 0.3 k/uL (0-1.0); Monocytes % (A) 3 %; Neutrophils # (A) 7.8 k/uL (1.3-7.7); Neutrophils % (A) 72 %; Platelet Count 200 k/uL (150-450); RBC 3.58 m/uL (3.80-5.40); RDW 13.1 % (11.5-15.5); WBC 10.9 k/uL (3.8-10.6)
--- NOTE | 2023-05-22 08:55 | P.DS ---
Providers Date of admission: 05/21/2023 Expected date of discharge: 05/22/23 Attending physician: Freida Barragan Primary care physician: Elinor Holland, NPC - Discharge Diagnosis(es) (1) Menorrhagia with regular cycle Current Visit: No Status: Acute (2) Dysmenorrhea Current Visit: No Status: Acute (3) JULIUS III (cervical intraepithelial neoplasia grade III) with severe dysplasia Current Visit: No Status: Resolved Hospital Course: This is a 32-year-old female who underwent a total left scopic hysterectomy with bilateral salpingectomy with da Renee and diagnostic cystoscopy 05/21/2023. Her post operative course has been essentially uncomplicated. She has been ambulating. She is passing flatus but no bowel movement yet. Her pain has been fairly well-controlled with ibuprofen and Tylenol along with an occasional oxycodone. She has very minimal bleeding. She is urinating without difficulty. Vital signs are stable. Abdomen is soft with positive bowel sounds 4. Dressings are dry and intact. Impression is status post total laparoscopic hysterectomy with bilateral salpingectomy with da Renee and diagnostic cystoscopy postoperative day #1. Plan is to discharge home today. Routine postoperative instructions are given. She will be given a prescription for ibuprofen and a few oxycodone. She has been counseled regarding opioid use and has signed a consent form. She is advised to follow up in the office in approximately one week for a postoperative check. She is advised to call the office if she has any further questions or concerns prior to her appointment time. Procedures: Total laparoscopic hysterectomy with bilateral salpingectomy with da Renee and diagnostic cystoscopy on 05/21/2023 Patient Condition at Discharge: Stable Plan - Discharge Summary Discharge Rx Participant: No New Discharge Prescriptions: New oxyCODONE HCL [OxyIR] 5 mg PO Q6HR PRN #7 tab PRN Reason: Pain Ibuprofen [Motrin] 600 mg PO Q6HR PRN #60 tab PRN Reason: Mild Discomfort No Action traZODone HCL [Desyrel] 50 mg PO PRN PRN Reason: Pain Discharge Medication List traZODone HCL [Desyrel] 50 mg PO PRN 05/21/23 [History] Ibuprofen [Motrin] 600 mg PO Q6HR PRN #60 tab 05/22/23 [Rx] oxyCODONE HCL [OxyIR] 5 mg PO Q6HR PRN #7 tab 05/22/23 [Rx] Follow up Appointment(s)/Referral(s): Freida Barragan DO [Doctor of Osteopathic Medicine] - 1 Week Activity/Diet/Wound Care/Special Instructions: Activity as tolerated. Diet as tolerated. No heavy lifting. No intercourse for at least 6-8 weeks. May shower but no tub baths for at least [address] while on narcotic pain medication. Discharge Disposition: HOME SELF-CARE
[2023-05-22 09:01] VITALS: BP 91/61; PULSE 83; TEMP 98.2
== END 2023-05-22 10:30 | disposition home or self-care (01) ==
LOC: OR 05:44 → 4FBP 09:10 → OR 05-22 10:30
PROVIDERS: ATTEND Obstetrics & Gynecology
DX: N83.8 Other noninflammatory disorders of ovary, fallopian tube and broad ligament (principal); N92.0 Excessive and frequent menstruation with regular cycle; N94.6 Dysmenorrhea, unspecified; F41.9 Anxiety disorder, unspecified; F17.210 Nicotine dependence, cigarettes, uncomplicated; F10.90 Alcohol use, unspecified, uncomplicated; Z86.001 Personal history of in-situ neoplasm of cervix uteri; Z98.890 Other specified postprocedural states; Z82.49 Family history of ischemic heart disease and other diseases of the circulatory system; Z83.49 Family history of other endocrine, nutritional and metabolic diseases; Z79.899 Other long term (current) drug therapy
CPT/HCPCS: 58571; 81025; 85025; 88307; J2250; J0330; J1200; J1100; J2710; J0690; J2405; J2001; J3010; J1170; J0131; J1885; J2704; J1790; J0665